=== PATIENT | male | born 1970 | race Two or more races ===

== ENCOUNTER 2018-12-15 03:06 | Emergency (ER) | payer BC ==
[~2018-12-15] VITALS: Ht 188 cm; Wt 81.6 kg
--- NOTE | 2018-12-15 03:15 | NUR ---
ED Nurse Note: Patient walked into ED c/o not being able to sleep for the past week, patient does present with congestion however reports no fevers or chills. patient is alert and oriented x4, ambulatory with a steady gait, VSS. complains of no pain at this time. patient placed in a room, will continue to monitor
[2018-12-15 03:20] VITALS: BP 117/76
[2018-12-15] MEDS ORDERED: AMBIEN5 MG ORAL (03:32)
[2018-12-15 03:38] VITALS: BP 120/80
--- NOTE | 2018-12-15 03:38 | NUR ---
ER DISCHARGE NOTE: Patient is cleared to be discharged per ERMD, pt is aox4, on room air, with stable vital signs. pt was given dc and prescription instructions, pt was able to verbalize understanding, pt id band removed without complications. pt is able to ambulate with steady gait. pt took all belongings.
--- NOTE | 2018-12-15 13:08 | Emergency Room Report ---
History of Present Illness General Chief Complaint: General Complaint Source: Patient Present Illness HPI Patient is a 48-year-old male presents after increased insomnia. He reports having multiple days where he was unable to sleep. He denies any stimulant use. He states he has not been having any prior history of similar symptoms. He denies any current complaints. He is not taking any psychiatric medications currently. He denies any prior medical history Allergies: Coded Allergies: No Known Allergies (Unverified , 12/15/18) Patient History Past Medical History: see triage record Past Surgical History: none Reviewed Nursing Documentation: PMH: Agreed; PSxH: Agreed Nursing Documentation-PMH Past Medical History: No Stated History Review of Systems All Other Systems: negative except mentioned in HPI Physical Exam Vital Signs Date Time Temp Pulse Resp B/P (MAP) Pulse Ox O2 Delivery O2 Flow Rate FiO2 12/15/18 03:18 97.9 60 18 117/76 (90) 97 Room Air General Appearance: well appearing, no apparent distress, alert, GCS 15 Head: normocephalic, atraumatic ENT: hearing grossly normal, normal voice Neck: full range of motion, supple Respiratory: normal inspection, lungs clear, no respiratory distress, speaking full sentences Gastrointestinal: normal inspection Musculoskeletal: normal inspection, back normal, digits/nails normal, no calf tenderness Neurologic: normal inspection, alert, oriented x3, responsive, pinsetter mechanic automatic III-XII nml as tested, normal gait Psychiatric: mood/affect normal Skin: no rash Medical Decision Making Diagnostic Impression: Primary Impression: Insomnia ER Course Patient presented for insomnia. Differential diagnosis include was not limited to insomnia, psychosis, medication withdrawal among others. Patient does not appear to be anxious or psychotic. Given Rx for Ambien. Advised not to drive or operate any machinery and take medication. Patient was advised to return if any concerns. Last Vital Signs Date Time Temp Pulse Resp B/P (MAP) Pulse Ox O2 Delivery O2 Flow Rate FiO2 12/15/18 03:38 97.9 65 18 120/80 97 Room Air Status: unchanged Disposition: HOME, SELF-CARE Condition: Stable Scripts Zolpidem Tartrate* (AMBIEN*) 5 Mg Tablet 5 MG ORAL BEDTIME PRN for Insomnia, #5 TAB Prov: Seng Gruber MD 12/15/18 Referrals: [facility],REFERRING (PCP) Patient Instructions: Insomnia Seng Gruber MD Dec 15, 2018 13:08
== END 2018-12-15 03:38 | disposition home or self-care (01) ==
LOC: EMR 03:32
DX: G47.00 Insomnia, unspecified (principal)
CPT/HCPCS: 99282